=== PATIENT | male | born 1970 | race Caucasian/White ===

== ENCOUNTER 2023-09-07 06:49 | Day surgery (SDC) | payer OTHER ==
[~2023-09-07] VITALS: Ht 170.2 cm; Wt 89.8 kg
[2023-09-07] MEDS ORDERED: MEPERIDINE 100 MG INJ. 100 MG/ML VIAL ONE ×2 (07:01→09:59)
[2023-09-07] MEDS ORDERED: MIDAZOLAM HCL 5 MG/5 ML VIAL ONE (07:02)
[2023-09-08 14:59] VITALS: BP_SYST 124; PULSE 81; RESP 16; TEMP 97.5; O2SAT 97
== END 2023-09-07 11:00 | disposition home or self-care (01) ==
LOC: SDS 06:49 → SMU 06:50 → SDS 11:00
PROVIDERS: ATTEND Internal Medicine Gastroenterology
DX: Z12.11 Encounter for screening for malignant neoplasm of colon (principal); D12.4 Benign neoplasm of descending colon; K63.5 Polyp of colon; D12.0 Benign neoplasm of cecum; K57.30 Diverticulosis of large intestine without perforation or abscess without bleeding; K64.8 Other hemorrhoids; I10 Essential (primary) hypertension; Z79.899 Other long term (current) drug therapy
CPT/HCPCS: 99152; 45385; 88305; 99153; G0378; J2250; J2175